=== PATIENT | female | born 2005 | race Two or more races ===

== ENCOUNTER 2024-01-02 18:12 | Emergency (ER) | payer OTHER, SELFPAY ==
[2024-01-02 18:17] VITALS: BP 153/93; PULSE 110; RESP 18; TEMP 36.8; O2SAT 96; BMI 25.0
--- NOTE | 2024-01-02 18:26 | ED_ITS ---
HPI - Extremity Injury (Lower) General Chief Complaint: Extremity Pain/Injury, Lower Stated Complaint: hurt left side ankle Time Seen by Provider: 01/02/24 18:16 History of Present Illness HPI Narrative: This 18-year-old female comes in with an injury to her left foot that occurred just prior to arrival. She was at a [employer] event and jumping in a bouncy house and landed wrong on her left foot. Since then she has not been able to ambulate and has swelling over the lateral aspect of her left foot in the area of the proximal 5th metatarsal. She does not report any other injury. She did not lose consciousness. Related Data Home Medications Medication Instructions Recorded Confirmed duloxetine 01/02/24 Allergies Allergy/AdvReac Type Severity Reaction Status Date / Time No Known Drug Allergies Allergy Verified 01/02/24 18:22 Review of Systems Status of ROS: Reports: 10 or more systems reviewed and unremarkable except as noted in History and below Narrative: Constitutional: No fevers, no weight gain or loss. Eyes: No discharge. No vision changes. HENT: No congestion, no sore throat, no ear pain. Cardiovascular: No chest pain, no palpitations. Respiratory: No shortness of breath, no wheezes, no cough. Gastrointestinal: No abdominal pain, no vomiting, no diarrhea. Genitourinary: No dysuria, no hematuria. Musculoskeletal: Left foot injury as described above. Skin: No rashes, no pruritis. Neurological: No dizziness, weakness, sensory change, speech change. Endo/Heme/Allergies: No bruising or bleeding. No polydipsia. Pysch: no suicidality, no anxiety, no insomnia. All other systems reviewed and are negative. Exam Narrative: Exam Narrative: Constitutional: Well-developed, well-nourished, no acute distress. HEENT: Normocephalic, atraumatic. Neck: Normal range of motion. Nontender. Supple. Heart: Intact distal pulses. Lungs: No chest discomfort. No wheezes, rhonchi, or rales. Abdomen: Nontender. Back: Normal range of motion. Extremities: Swelling and tenderness over the lateral aspect of the left foot at the proximal 5th metatarsal. Skin: Intact. No rash. Warm. No erythema or pallor. Neurologic: No altered sensation. No weakness. Alert and oriented. Psychiatric: No suicidality. No anxiety or depression. No insomnia. Nursing notes and vitals signs are reviewed. Const: Vital Signs, click to edit/add: Vital Signs - 24 hr 01/02/24 18:17 Temperature 98.3 F Pulse Rate [Pulse Oximeter] 110 H Respiratory Rate 18 Blood Pressure [Ri ght Upper Arm] 153/93 H Pulse Oximetry 96 Oxygen Delivery Me thod Room Air Course Vital Signs Vital signs: Initial Vital Signs Temperature 98.3 F 01/02/24 18:17 Temperature Source Temporal Artery Scan 01/02/24 18:17 Pulse Rate 110 H 01/02/24 18:17 Respiratory Rate 18 01/02/24 18:17 Blood Pressure 153/93 H 01/02/24 18:17 Blood Pressure Mean 113 H 01/02/24 18:17 Blood Pressure Position Supine 01/02/24 18:17 Pulse Oximetry 96 01/02/24 18:17 Oxygen Delivery Method Room Air 01/02/24 18:17 Vital Signs Temperature 98.3 F 01/02/24 18:17 Pulse Rate 110 H 01/02/24 18:17 Respiratory Rate 18 01/02/24 18:17 Blood Pressure 153/93 H 01/02/24 18:17 Pulse Oximetry 96 01/02/24 18:17 Oxygen Delivery Method Room Air 01/02/24 18:17 Temperature 98.3 F 01/02/24 18:17 Pulse Rate 110 H 01/02/24 18:17 Respiratory Rate 18 01/02/24 18:17 Blood Pressure 153/93 H 01/02/24 18:17 Pulse Oximetry 96 01/02/24 18:17 Oxygen Delivery Method Room Air 01/02/24 18:17 MDM - Extremity Injury (Lower) MDM Narrative Medical decision making narrative: This 18-year-old female comes in with an injury to her left foot as described above. X-ray images are obtained and show evidence of an avulsion fracture with minimal displacement of the proximal portion of the left 5th metatarsal. There is no sign of Herrera fracture or other complication. The patient received crutches and is encouraged to increase ambulating as pain resolves after a week or so. She is finishing her semester at school and plans to follow-up with orthopedic clinic back at home. Discharge Plan Discharge Clinical Impression: Foot fracture, left Patient Disposition: Home, Self-Care Condition: Unchanged Additional Instructions: Use crutches for ambulating. Increase activity as tolerated. Follow-up with orthopedic clinic for further management. Use [id number] medicines as needed and directed. Prescriptions: No Action duloxetine Follow Up/Referrals: Provider,Not a Local [Primary Care Provider] - Stand Alone Forms: Smart[employer] Info Instructions
--- NOTE | 2024-01-02 18:26 | XR_ITS ---
Patient: MADONNA WESLEY Facility:?[facility] Patient ID:?[id number] Site Patient ID:?[id number]. Site :?[id number] Study:?XRay-Extremity Left Foot 3v-01/02/2024 6:50:20 PM Ordering Physician:Stacey Final Report: Indication: Patient was in a bounce house, landed on LT foot, heard snap and cant put pressure on it Technique: Three views of the left foot Comparison: None Findings/impression : Nondisplaced avulsion fracture at the base of the left 5th metatarsal with minimal adjacent soft tissue swelling. No additional fractures or malalignment. No suspicious osseous lesions. Dictated by Tip Diaz MD @ 01/02/2024 7:25:42 PM Signed by:?Tip Diaz MD @01/02/2024 7:25:42 PM (Electronic Signature)
[2024-01-02 19:28] VITALS: BP 153/93; PULSE 92; RESP 18; TEMP 36.8
== END 2024-01-02 19:31 | disposition home or self-care (01) ==
PROVIDERS: Emergency Provider Emergency Medicine Emergency Medical Services
DX: S92.512A Displaced fracture of proximal phalanx of left lesser toe(s), initial encounter for closed fracture (principal); X50.1XXA Overexertion from prolonged static or awkward postures, initial encounter
CPT/HCPCS: 73630; 99283; 99284

== ENCOUNTER 2024-06-02 00:54 | Emergency (ER) | payer OTHER, SELFPAY ==
[2024-06-02 01:02] VITALS: BP 150/88; PULSE 120; RESP 16; TEMP 37.2; O2SAT 98; BMI 23.8
--- NOTE | 2024-06-02 01:06 | ED_ITS ---
HPI - General Adult General Time Seen by Provider: 01:06 Date Seen: 06/02/24 Chief complaint: Ear/Nose/Throat Problem Stated complaint: ear pain/neck pain Time Seen by Provider: 06/02/24 01:06 Source: patient, RN notes reviewed and old records reviewed Mode of arrival: ambulatory Limitations: no limitations History of Present Illness HPI narrative: 18-year-old female who presents today with ear pain and neck pain. Patient notes 2 days of bilateral ear pain slightly worse on the left as well as throat pain. Some chills. Denies cough, runny nose. Did have some vomiting and diarrhea over the weekend but that has resolved. Took ibuprofen about an hour prior to coming the emergency department Related Data Home Medications ?Medication ?Instructions ?Recorded ?Confirmed duloxetine 01/02/24 Allergies Allergy/AdvReac Type Severity Reaction Status Date / Time No Known Drug Allergies Allergy Verified 06/02/24 01:05 [facility] Social History Smoking Status: Never smoker How often do you have a drink containing alcohol: never AUDIT-C Alcohol total score: 0 Non-prescribed substance use: denies use Exam Narrative: Exam Narrative: General: Well-developed and well-nourished, no acute distress Head: Atraumatic and normocephalic Eyes: Pupils are equal reactive, extraocular motions intact, conjunctiva clear ENT: External nose and ears are normal, posterior pharynx mildly erythematous but no soft palate tonsillar asymmetry. Left tympanic membrane slightly erythematous especially on the superior anterior quadrant. Neck: No midline cervical tenderness, full spontaneous range of motion the neck, trachea midline, no adenopathy Heart: Tachycardic rate and rhythm no murmurs or thrills Lungs: Clear to auscultation bilaterally without wheezes or crackles Abdomen: Soft, nontender, nondistended with active bowel sounds Musculoskeletal: No tenderness, deformity, or edema Neurologic: Awake, alert, and oriented x3, no gross focal neurologic deficits, cranial nerves intact as tested Psych: Mood and affect are appropriate Skin: No rashes Const: Vital Signs, click to edit/add: Vital Signs - 24 hr 06/02/24 01:02 Temperature 99.0 F Pulse Rate [Right Pulse Oximeter] 120 H Respiratory Rate 16 Blood Pressure [Ri ght Upper Arm] 150/88 H Pulse Oximetry 98 Oxygen Delivery Me thod Room Air Course Course ED Course: Patient seen examined, presents with ear pain and neck pain for couple of days. On exam here, left tympanic membrane is slightly red and bulging, right tympanic membrane normal in appearance. Mild posterior or pharyngeal erythema. No cervical adenopathy. Patient is noted to be tachycardic, denies chest pain or shortness of breath, pulmonary embolism is clinically unlikely. Given recent gastrointestinal illness a couple days ago, this could be some mild residual dehydration although patient is hypertensive. There may be a component of anxiety as well. Toradol and Decadron in the emergency department, strep test will be done as well. Reevaluation(s) Time of Reevaluation #1: 02:09 Reevaluation #1: Labs ordered and independently interpreted by me with normal basic panel, negative mono spot. Time of Reevaluation #2: 02:14 Reevaluation #2: Strep test negative, patient is stable for discharge Vital Signs Vital signs: Initial Vital Signs Temperature 99.0 F 06/02/24 01:02 Temperature Source Temporal Artery Scan 06/02/24 01:02 Pulse Rate 120 H 06/02/24 01:02 Pulse Rhythm Regular 06/02/24 01:02 Pulse Strength 3+ Normal 06/02/24 01:02 Respiratory Rate 16 06/02/24 01:02 Blood Pressure 150/88 H 06/02/24 01:02 Blood Pressure Mean 108 H 06/02/24 01:02 Blood Pressure Position Sitting 06/02/24 01:02 Pulse Oximetry 98 06/02/24 01:02 Oxygen Delivery Method Room Air 06/02/24 01:02 Vital Signs Temperature 99.0 F 06/02/24 01:02 Pulse Rate 120 H 06/02/24 01:02 Respiratory Rate 16 06/02/24 01:02 Blood Pressure 150/88 H 06/02/24 01:02 Pulse Oximetry 98 06/02/24 01:02 Oxygen Delivery Method Room Air 06/02/24 01:02 Temperature 99.0 F 06/02/24 01:02 Pulse Rate 120 H 06/02/24 01:02 Respiratory Rate 16 06/02/24 01:02 Blood Pressure 150/88 H 06/02/24 01:02 Pulse Oximetry 98 06/02/24 01:02 Oxygen Delivery Method Room Air 06/02/24 01:02 Medications Administered Medications: Discontinued Medications Generic Name Dose Route Start Last Admin Trade Name Freq PRN Reason Stop Dose Admin Ketorolac Tromethamine 30 mg 06/02/24 01:16 06/02/24 01:31 Ketorolac 30 Mg/Ml Inj IM 06/02/24 01:17 30 mg ONCE ONE Administration Prednisone 40 mg 06/02/24 01:17 06/02/24 01:31 Prednisone 20 Mg Tablet PO 06/02/24 01:18 40 mg ONCE ONE Administration Medical Decision Making Lab Data Labs: Lab Results 06/02/24 06/02/24 Range/Units 01:30 01:35 Sodium 140 (135-149) mmol/L Potassium 3.5 L (3.6-5.1) mmol/L Chloride 105 (96-114) mmol/L Carbon Dioxide 25 (20-32) mmol/L Anion Gap 10 (7-15) mEq/L BUN 10 (5-24) mg/dL Creatinine 0.4 L (0.5-1.5) mg/dL Estimated Creat Clear 201.88 Estimated GFR 145 ml/min Glucose 165 H (60-115) mg/dL Calcium 9.5 (8.4-10.6) mg/dL Monoscreen Negative (Negative) Group A Strep DNA NOT DETECTED (Not Detectd) Discharge Plan Discharge Clinical Impression: Acute otalgia, Pharyngitis Patient Disposition: Home, Self-Care Condition: Stable Instructions: Pharyngitis (ED), Earache (ED) Additional Instructions: Take Tylenol and ibuprofen as needed for pain Take prednisone as prescribed Activity Level: No Restrictions Discharge Diet: Regular Prescriptions: No Action duloxetine Follow Up/Referrals: Provider,Not a Local [Primary Care Provider] - Stand Alone Forms: [employer] Info Instructions
[2024-06-02] MEDS: KETOROLAC 30 MG/ML inj IM (01:31)
[2024-06-02] MEDS: predniSONE 20 MG TABLET 40 MG PO (01:31)
[2024-06-02 01:52] LABS: Mono Screen* Negative (Negative)
[2024-06-02 01:58] LABS: Chloride* 105 mmol/L (96-114); Sodium* 140 mmol/L (135-149)
[2024-06-02 01:59] LABS: Potassium* 3.5 mmol/L (3.6-5.1)
[2024-06-02 02:01] LABS: Anion Gap 10 mEq/L (7-15); Carbon Dioxide* 25 mmol/L (20-32); Creatinine* 0.4 mg/dL (0.5-1.5); Est. Creatinine Clearance* 201.88; Estimated Glomerular Filt Rate 145 ml/min
[2024-06-02 02:02] LABS: Blood Urea Nitrogen* 10 mg/dL (5-24); Calcium* 9.5 mg/dL (8.4-10.6); Glucose* 165 mg/dL (60-115)
[2024-06-02 02:11] LABS: Strep A DNA Probe* NOT DETECTED (Not Detectd)
== END 2024-06-02 02:27 | disposition home or self-care (01) ==
PROVIDERS: Emergency Provider Family Medicine
DX: H92.03 Otalgia, bilateral (principal); J02.9 Acute pharyngitis, unspecified
CPT/HCPCS: 36415; 80048; 86308; 87651; 96372; 99284; J1885; J7512

== ENCOUNTER 2024-11-28 22:33 | Outpatient (CLI) | payer OTHER, SELFPAY | END 2024-11-28 22:34 | disposition home or self-care (01) | LOC: AMB 11-30 14:44 | PROVIDERS: Visit Provider Internal Medicine | DX: F12.10 Cannabis abuse, uncomplicated (principal); F41.9 Anxiety disorder, unspecified | CPT/HCPCS: A0425; A0427 ==

== ENCOUNTER 2024-11-28 22:55 | Emergency (ER) | payer OTHER, SELFPAY ==
[2024-11-28 23:04] VITALS: BP 141/98; PULSE 132; RESP 22; TEMP 36.7; O2SAT 100; BMI 25.7
--- NOTE | 2024-11-28 23:17 | ED_ITS ---
HPI - General Adult General Date Seen: 11/28/24 Chief complaint: Anxiety Stated complaint: high heart rate Time Seen by Provider: 11/28/24 23:02 Source: patient Mode of arrival: EMS Limitations: no limitations History of Present Illness HPI narrative: Patient is a 19-year-old female presenting to the emergency department for a panic attack after smoking marijuana. She states about 21:45 and she smoked marijuana and after that she was having a panic attack. She states she has a history of panic attacks typically takes Xanax rhythm. She does feel like her heart is racing had these symptoms before. She has never had the symptoms after smoking marijuana though. She has smoked marijuana previously. Does not think she smoked more marijuana than normal. Denies fevers, chills, chest pain, shortness of breath, abdominal pain. Does states she feels mildly dizzy. Has had some mild nausea but has not vomited. Denies fevers, chills, weakness, numbness. No history of heart disease Related Data Home Medications ?Medication ?Instructions ?Recorded ?Confirmed duloxetine 01/02/24 Allergies Allergy/AdvReac Type Severity Reaction Status Date / Time lactose AdvReac Gastrointestinal Verified 11/28/24 23:04 Upset Review of Systems 2 Status of ROS: Reports: 10 or more systems reviewed and unremarkable except as noted in History and below PFSH PFS Social History Smoking Status: Current some day smoker Do you use any of these nicotine containing products: Vaping Products How often do you have a drink containing alcohol: never AUDIT-C Alcohol total score: 0 Non-prescribed substance use: marijuana (any form) service: No Exam Narrative: Exam Narrative: Const: Well-nourished, Well-developed, in mild distress Eyes: PERRL, no conjunctival injection, and symmetrical lids HENT: Atraumatic external nose and ears. Moist mucous membranes. Neck: Symmetric, trachea midline, No thyromegaly. CVS: Tachycardic, No murmurs or gallops. Peripheral pulses 2+ and equal in all extremities RESP: Unlabored respiratory effort. Clear to auscultation bilaterally. GI: Nontender/Nondistended, No rebound or guarding. MSK:Extremities w/o deformity, Normal Active ROM Skin: Warm, Dry. No rashes or lesions. Neuro: Normal Muscle tone, No focal neurological deficits. Psych: Awake, Alert, & Oriented x3. Appropriate mood and affect. Const: Vital Signs, click to edit/add: Vital Signs - 24 hr 11/28/24 23:04 Temperature 98.0 F Pulse Rate [Apical ] 132 H Respiratory Rate 22 Blood Pressure [Ri ght Upper Arm] 141/98 H Pulse Oximetry 100 Oxygen Delivery Me thod Room Air Course Vital Signs Vital signs: Initial Vital Signs Temperature 98.0 F 11/28/24 23:04 Temperature Source Temporal Artery Scan 11/28/24 23:04 Pulse Rate 132 H 11/28/24 23:04 Pulse Rhythm Regular 11/28/24 23:04 Respiratory Rate 22 11/28/24 23:04 Blood Pressure 141/98 H 11/28/24 23:04 Blood Pressure Mean 112 H 11/28/24 23:04 Blood Pressure Position Sitting 11/28/24 23:04 Pulse Oximetry 100 11/28/24 23:04 Oxygen Delivery Method Room Air 11/28/24 23:04 Vital Signs Temperature 98.0 F 11/28/24 23:04 Pulse Rate 132 H 11/28/24 23:04 Respiratory Rate 22 11/28/24 23:04 Blood Pressure 141/98 H 11/28/24 23:04 Pulse Oximetry 100 11/28/24 23:04 Oxygen Delivery Method Room Air 11/28/24 23:04 Temperature 98.0 F 11/28/24 23:04 Pulse Rate 132 H 11/28/24 23:04 Respiratory Rate 22 11/28/24 23:04 Blood Pressure 141/98 H 11/28/24 23:04 Pulse Oximetry 100 11/28/24 23:04 Oxygen Delivery Method Room Air 11/28/24 23:04 Medications Administered Medications: Discontinued Medications Generic Name Dose Route Start Last Admin Trade Name Freq PRN Reason Stop Dose Admin Lorazepam 1 mg 11/28/24 23:14 11/28/24 23:24 Lorazepam 1 Mg Tablet PO 11/28/24 23:15 1 mg ONCE ONE Administration Ondansetron HCl 4 mg 11/28/24 23:14 11/28/24 23:24 Ondansetron Odt 4 Mg Tab PO 11/28/24 23:15 4 mg ONCE ONE Administration Medical Decision Making MDM Narrative Medical decision making narrative: Patient is a 19-year-old female presents with tachycardia and what appears to be a panic attack. Will give her some Ativan for her anxiety and Zofran for her nausea. Also do an EKG to rule out a long QT or other abnormalities. Will of 1 further lab work at this time as it seems most likely a panic attack from smoking marijuana. [place] [id number]. She is feeling well at this time. I do believe she is safe for discharge. EKG shows no concerning findings. ECG Data Attestation: I personally reviewed and interpreted this ECG as follows: Prior ECG tracings: not available for review Interpretation: Sinus tachycardia rate 18 beats per minute, normal intervals, normal axis, no ST or T-wave abnormalities Discharge Plan Discharge Clinical Impression: Panic disorder Patient Disposition: Home, Self-Care Condition: Improved Instructions: Panic Attack (ED) Additional Instructions: I believe your symptoms were from a panic attack caused by the marijuana. Return to emergency department for new or worsening symptoms. Prescriptions: No Action duloxetine Follow Up/Referrals: Provider,Not a Local [Primary Care Provider] - Stand Alone Forms: [employer] Info Instructions
[2024-11-28] MEDS: ONDANSETRON ODT 4 MG TAB PO (23:24)
[2024-11-28] MEDS: LORazepam 1 MG TABLET PO (23:24)
[2024-11-28 23:58] VITALS: BP 140/86; PULSE 113; RESP 16; O2SAT 99
== END 2024-11-29 00:05 | disposition home or self-care (01) ==
LOC: ED 23:45
PROVIDERS: Emergency Provider Student in an Organized Health Care Education/Training Program
DX: F41.0 Panic disorder [episodic paroxysmal anxiety] (principal); F12.90 Cannabis use, unspecified, uncomplicated
CPT/HCPCS: 93005; 99283; 99284; A9270